=== PATIENT | male | born 1945 | race Caucasian/White ===

== ENCOUNTER 2018-09-14 00:47 | Emergency (ER) | payer BC, OTHER ==
[~2018-09-14] VITALS: Ht 185.4 cm; Wt 97.1 kg
[2018-09-14] MEDS ORDERED: RX-TRAMADOL 50 MG (ULTRAM) TAB PPK#4 PO STA (01:56)
[2018-09-14] MEDS ORDERED: RX-CYCLOBENZAPRINE 10 MG (FLEXERIL) TAB PPK#3 PO STA (01:56)
[2018-09-14] MEDS ORDERED: CYCL10TA9 PO (01:56)
[2018-09-14] MEDS ORDERED: TRAM-42 PO (01:56)
--- NOTE | 2018-09-14 01:56 | ED Back Pain ---
General Chief Complaint: Back Problems Stated Complaint: LOW BACK SPASMS Nursing Triage Note: Pt ambulated to rm 5. Pt states [place] was [place] returning on Sep.02. Pt was then diagnosed with food poisoning. Pt now c/o back pain that began two days ago. Pt saw chiropractor yesterday and was told was "out of place." Pt had adjustment. Pt is in town for father's that he is speaking at later this morning. Nursing Sepsis Screen: No Definite Risk Allergies and Home Medications Allergies Coded Allergies: tamsulosin (Verified Allergy, Unknown, 09/14/18) Past [id number]-[id number]-Rjkzrk Hx Patient Social History Alcohol Use: Occasionally Uses Recreational Drug Use: No 2nd Hand Smoke Exposure: No Recent Foreign Travel: Yes Contact w/Someone Who Travel: No Recent Infectious Disease Expo: No Recent Hopitalizations: No Seasonal Allergies Seasonal Allergies: No Past Medical History Surgeries: Yes (bi lateral knee) Orthopedic, Pancreatic, Tonsillectomy Respiratory: No Cardiac: No Neurological: No Genitourinary: No Gastrointestinal: No Musculoskeletal: No Endocrine: Yes Diabetes, Non-Insulin dep HEENT: No Cancer: No Psychosocial: No Integumentary: No Blood Disorders: No Adverse Reaction/Blood Tranf: No Physical Exam Vital Signs Vital Signs - First Documented 09/14/18 01:20 Temp 97.8 Pulse 67 Resp 17 B/P (MAP) 165/99 (121) Pulse Ox 95 O2 Delivery Room Air Capillary Refill : Less Than 3 Seconds Height, Weight, BMI Height: 6'1.00" Weight: 214lbs. oz. 97.610514qf; BMI Method:Stated Progress/Results/Core Measures Results/Orders My Orders Orders - JOAN ANDRES DO Orphenadrine Injection (Norflex Injectio (09/14/18 02:00) Ketorolac Injection (Toradol Injection) (09/14/18 02:00) Vital Signs/I&O 09/14/18 01:20 Temp 97.8 Pulse 67 Resp 17 B/P (MAP) 165/99 (121) Pulse Ox 95 O2 Delivery Room Air Blood Pressure Mean: 121 Departure Impression Primary Impression: LOW BACK PAIN AND SPASMS Disposition: 01 HOME, SELF-CARE Condition: Stable Departure-Patient Inst. Referrals: NO,LOCAL PHYSICIAN (PCP/Family) Primary Care Physician Patient Instructions: Low Back Pain (DC), Muscle Spasms (DC) Add. Discharge Instructions: MOIST HEAT TO SORE AREA AT 20 MINUTE INTERVALS TYLENOL 1 GRAM/ MOTRIN 800 MG 4 TIMES A DAY FOR PAIN FOLLOW UP WITH YOUR DR ON MONDAY IF NO BETTER RETURN TO ER IF WORSE All discharge instructions reviewed with patient and/or family. Voiced understanding. Scripts Tramadol HCl (Ultram) 50 Mg Tablet 50 MG PO Q4H, #20 TAB Prov: JOAN ANDRES DO 09/14/18 Cyclobenzaprine HCl (Cyclobenzaprine HCl) 10 Mg Tablet 10 MG PO Q8H, #15 TAB Prov: JOAN ANDRES DO 09/14/18 JOAN ANDRES DO Sep 14, 2018 01:56
[2018-09-14] MEDS ORDERED: ORPHENADRINE 60 MG/2 ML (NORFLEX) AMP IM ONE (02:00)
[2018-09-14] MEDS ORDERED: KETOROLAC 60 MG/2 ML VIAL IM ONE (02:00)
[2018-09-14 02:40] VITALS: BP 165/99
== END 2018-09-14 02:39 | disposition home or self-care (01) ==
LOC: ER 00:55
DX: M54.5 Low back pain (principal); M62.830 Muscle spasm of back; E11.9 Type 2 diabetes mellitus without complications; Z88.8 Allergy status to other drugs, medicaments and biological substances; Z90.89 Acquired absence of other organs
CPT/HCPCS: 99284